=== PATIENT | male | born 1995 | race Caucasian/White ===

== ENCOUNTER 2021-04-29 22:36 | Emergency (ER) | payer SELFPAY ==
[~2021-04-29] VITALS: Ht 170.2 cm; Wt 51.8 kg
[2021-04-30] MEDS ORDERED: LORazepam 0.5 MG TABLET PO ONE (01:15)
--- NOTE | 2021-04-30 01:16 | PHYS DOC ---
Past Medical History Past Medical History: Anxiety, Asthma, Bipolar, Depression, GERD, Other Additional Past Medical Histor: panic attacks Past Surgical History: No Surgical History Smoking Status: Current Every Day Smoker Alcohol Use: None Drug Use: Marijuana General Adult EDM: Chief Complaint: ABDOMINAL PAIN HPI: HPI: Mr. Sharpe is a 25 yo male with extensive psychiatric history, IBS, GERD and stress ulcers who presents for LLQ quadrant pain. Patient states these symptoms are chronic in nature (10-12 years) and he decided to address them because they became overbearing. He states the abdominal pain usually starts in LLQ quadrant and becomes generalized. He states that the abdominal tenderness starts in the morning and is exacerbated by daily stressors. Recently, he is faced with a wide variety of stressors; family; relationships and financial; all of which induce his anxiety symptoms and initiate his abdominal pain. In addition, he has a history of IBS. constipation type not managed by medications which he feels are contributing to his abdominal pain. In addition to abdominal pain, patient has endorsed black stools and weight loss (7lbs in 5 months). Review of Systems: Review of Systems: Macro review constitutional: Denies fever, endorses chills Eyes: Denies redness or eye pain HENT: Denies nasal congestion or sore throat Respiratory: Denies cough, endorses shortness of breath during anxiety attacks Cardiovascular: Denies chest pain or palpitations GI: Endorses abdominal pain, constipation : Denies dysuria or hematuria Musculoskeletal: Denies back pain or joint pain Integument: Denies rash or skin lesions Neurologic: Denies headache, focal weakness or sensory changes Complete systems were reviewed and found to be within normal limits, except as documented in this note. Heart Score: C/O Chest Pain: N/A Allergies: Allergies: Allergies Coded Allergies Type Severity Reaction Last Updated Verified No Known Drug Allergies 04/25/13 No Physical Exam: PE: Constitutional: Well developed, malnourished, mild acute distress, non-toxic appearance HENT: Normocephalic, atraumatic Eyes: PERRL, EOMI, conjunctiva normal, no discharge Neck: Normal range of motion, no tenderness, supple Lungs & Thorax: No respiratory distress, equal chest rise and fall, clear to auscultate bilaterally Abdomen: Bowel sounds present X4, LLQ tenderness upon light palpation Skin: Warm, dry, no erythema, no rash Back: No tenderness, no CVA tenderness Extremities: No tenderness, ROM intact, no edema Neurologic: Alert and oriented X 3, normal motor function, normal sensory function, no focal deficits noted Psychologic: Affect normal, judgment normal Current Patient Data: Vital Signs: Vital Signs Date Time Temp Pulse Resp B/P (MAP) Pulse Ox O2 Delivery O2 Flow Rate FiO2 04/30/21 00:19 58 20 130/90 (103) 98 Room Air 04/29/21 23:40 98.3 98.3 EKG: EKG: [] Radiology/Procedures: Radiology/Procedures: [] Course & Med Decision Making: Course & Med Decision Making Mr. Sharpe is a 25 yo male with extensive psychiatric history, IBS, GERD and stress ulcers who presents for LLQ quadrant abdominal pain. Patient's symptoms are chronic in nature and upon further discussion patient agrees that his current symptoms are exacerbated by his anxiety and that any new imaging is not necessary. Consequently, patient was consulted on medication management due to difficulty taking his sucralfate which could be contributing to some of his symptoms. In addition, patient was consulted on the side effects of anxiety and was recommended some free clinics in the area to follow up. Angelia Disclaimer: Angelia Disclaimer: This electronic medical record was generated, in whole or in part, using a voice recognition dictation system. Departure Departure Impression: Primary Impression: Epigastric pain Additional Impression: Anxiety Disposition: 01 HOME / SELF CARE / HOMELESS Condition: STABLE Referrals: NO PCP (PCP) RENE CORTES MD Patient Instructions: Abdominal Pain (Nonspecific), Anxiety and Panic Attacks, [id number] Additional Instructions: Please call [facility] at to seek help for your mental health and/or drug/alcohol abuse. Scripts Ondansetron (ONDANSETRON ODT) 4 Mg Tab.rapdis 1 TAB PO PRN Q6-8HRS PRN for NAUSEA, #16 TAB Prov: AMIRA DEWEY DO 04/30/21 AMIRA DEWEY DO Apr 30, 2021 01:16
[2021-04-30] MEDS ORDERED: ONDA4TAB12 PO (01:20)
[2021-04-30 01:41] VITALS: BP 117/88
== END 2021-04-30 02:00 | disposition home or self-care (01) ==
LOC: ER 22:36
DX: K59.00 Constipation, unspecified (principal); K58.9 Irritable bowel syndrome, unspecified; J45.909 Unspecified asthma, uncomplicated; F31.9 Bipolar disorder, unspecified; K21.9 Gastro-esophageal reflux disease without esophagitis; F17.200 Nicotine dependence, unspecified, uncomplicated
CPT/HCPCS: 99285-25

== ENCOUNTER 2021-07-05 22:16 | Emergency (ER) | payer SELFPAY ==
[~2021-07-05] VITALS: Ht 175.3 cm; Wt 54.4 kg
[~2021-07-05 22:16] MED LIST: ONDA4TAB12 PO
--- NOTE | 2021-07-05 22:27 | PHYS DOC ---
Past Medical History Past Medical History: Anxiety, Asthma, Bipolar, Depression, GERD, Other Additional Past Medical Histor: panic attacks Past Surgical History: No Surgical History Smoking Status: Current Every Day Smoker Alcohol Use: None Drug Use: Marijuana General Adult HPI: HPI: Patient is a 25 year old male who reports having intermittent palpitations for the last several days. He has previously experienced similar symptoms. It has been several years since he saw cardiology. It sounds like he may have had a Holter monitor at one point in time. He reports only mild shortness of breath and chest discomfort with palpitations only. Symptoms of palpitations, pain and dyspnea only last a few seconds at a time. He denies dizziness, diaphoresis, syncope, abdominal pain, nausea, vomiting. He does admit to having some significant anxiety, which is chronic and unchanged. He takes alprazolam. He does not take any other medications for his anxiety. He denies any recent or new stressors. Denies SI or HI symptoms. He denies fevers or chills. Denies cough. Denies abdominal pain. No lower extremity pain or swelling. No recent travel, surgery, hospitalization. He does not drink caffeine, does not use illicit substances. Review of Systems: Review of Systems: Constitutional: Denies fever or chills. [] HENT: Denies nasal congestion or sore throat. [] Respiratory: Denies cough or hemoptysis. Brief episodes of dyspnea with palpitations only. Cardiovascular: Palpitations, chest pain with palpitations only. Denies edema. Denies syncope. GI: Denies abdominal pain, nausea, vomiting, or diarrhea. : Denies urinary symptoms. Musculoskeletal: Denies back pain or joint pain. [] Integument: Denies rash. [] Neurologic: Denies headache, focal weakness or sensory changes. Denies dizziness or syncope. Psychiatric: Chronic anxiety. Denies SI or HI symptoms. Heart Score: C/O Chest Pain: Yes HEART Score for Chest Pain: HEART Score for Chest Pain Response (Comments) Value History Slighlty/Non-Suspicious 0 ECG Normal 0 Age < 45 0 Risk Factors No Risk Factors 0 Troponin < Normal Limit 0 Total 0 Risk Factors: Risk Factors: DM, Current or recent (<one month) smoker, HTN, HLP, family history of CAD, obesity. Risk Scores: Score 0 - 3: 2.5% MACE over next 6 weeks - Discharge Home Score 4 - 6: 20.3% MACE over next 6 weeks - Admit for Clinical Observation Score 7 - 10: 72.7% MACE over next 6 weeks - Early Invasive Strategies Allergies: Allergies: Allergies Coded Allergies Type Severity Reaction Last Updated Verified No Known Drug Allergies 04/25/13 No Physical Exam: PE: Constitutional: Well developed, well nourished, no acute distress, non-toxic appearance. [] HENT: Normocephalic, atraumatic, oropharynx is patent and clear, mucous membranes are moist Eyes: Conjunctiva normal, no discharge. [] Neck: Normal range of motion, no tenderness, supple, no stridor. Trachea is midline. No JVD. Cardiovascular:Heart rate regular rhythm, +2 radial and +2 dorsalis pedis pulses bilaterally. No edema, cap refill brisk, no sinus Lungs & Thorax: Bilateral breath sounds clear to auscultation, no rales, rhonchi or wheezes Abdomen: Abdomen is soft, nondistended, nontender to palpation peer Skin: Warm, dry, no erythema, no rash. [] Back: No tenderness, no CVA tenderness. [] Extremities: No tenderness, no cyanosis, no clubbing, ROM intact, no edema. No calf tenderness Neurologic: Alert and oriented X 3, normal motor function, normal sensory function, no focal deficits noted. [] Psychologic: He is anxious but cooperative and pleasant. EKG: EKG: EKG is interpreted at 2239 Rhythm is sinus Rate is 79 bpm [place] is right No STEMI No acute ischemia Radiology/Procedures: Radiology/Procedures: IMAGING REPORT Signed PATIENT: DANG OZUNA ACCOUNT: [id number] : 1995 LOCATION: ER AGE: 25 SEX: M EXAM STATUS: PRE ER ORD. PHYSICIAN: ANA WINTERS DO REASON: palpitations, chest pain PROCEDURE: PORTABLE CHEST 1V Exam: Chest one view INDICATION: Palpitations, chest pain TECHNIQUE: Frontal view of the chest Comparisons: 02/22/2015 FINDINGS: The cardiomediastinal silhouette and pulmonary vessels are within normal limits. The lung and pleural spaces are clear. IMPRESSION: No acute cardiopulmonary process. Electronically signed by: Malika Daniels MD (07/05/2021 11:10 PM) [facility] DICTATED and SIGNED BY: MALIKA DANIELS MD DATE: 07/05/21 5231 Course & Med Decision Making: Course & Med Decision Making Pertinent Labs and Imaging studies reviewed. (See chart for details) I discussed the findings, differential diagnosis and plan of care with him. Emergency department work-up is unremarkable for any acute life-threatening pathology. EKG is unremarkable. Telemetry monitoring here demonstrates no acute abnormalities. Laboratory exams are unremarkable. I told him that he should follow-up with not only his PCP but also with outpatient cardiology services. He may require repeat Holter monitoring. Regarding his chronic anxiety issues, I explained that alprazolam is not an appropriate medication for treatment of generalized anxiety or chronic anxiety issues, he should talk to his PCP about maintenance medications. He has been referred to [facility], but he has not followed up with them yet. I told him that I encouraged him to do so. No current indication for admission at this time. Return precautions are given. Dragon Disclaimer: Dragon Disclaimer: This electronic medical record was generated, in whole or in part, using a voice recognition dictation system. Departure Departure Impression: Primary Impression: Palpitations Additional Impression: Anxiety Disposition: 01 HOME / SELF CARE / HOMELESS Condition: STABLE Referrals: NO PCP (PCP) MAYRA LEOS MD, DONALD J MD PASNOORI, VENKAT R MD Patient Instructions: Anxiety and Panic Attacks, Palpitations Additional Instructions: Please follow-up with your primary care physician as well as outpatient cardiology. Make sure you stay hydrated, avoid use of caffeine, drink plenty of water. Return to the ER for more severe symptoms, uncontrolled vomiting, severe abdominal pain, severe chest pain, severe shortness of breath, passing out, focal weakness or other concerns. Regarding your chronic anxiety issues, I do recommend you see [facility], also talk to your primary care doctor about being placed on a maintenance medication to help the underlying cause of your anxiety issues. ANA WINTERS DO Jul 05, 2021 22:27
[2021-07-05 22:55] LABS: BASO # 0.1 x10^3/uL (0.0-0.2); BASO % 1 % (0-3); EOS # 0.1 x10^3/uL (0.0-0.7); EOS % 1 % (0-3); HEMATOCRIT 41.9 % (39.0-53.0); HEMOGLOBIN 14.6 g/dL (13.0-17.5); LYMPH % 29 % (24-48); MEAN CORPUSCULAR HEMOGLOBIN 31 pg (25-35); MEAN CORPUSCULAR HGB CONC 35 g/dL (31-37); MEAN CORPUSCULAR VOLUME 89 fL (79-100); MONO # 0.7 x10^3/uL (0.0-1.1); MONO % 7 % (0-9); NEUT # 6.6 x10^3/uL (1.8-7.7); NEUT % 63 % (31-73); PLATELET COUNT 263 x10^3/uL (140-400); RED BLOOD COUNT 4.69 x10^6/uL (4.30-5.70); RED CELL DISTRIBUTION WIDTH 12.6 % (11.5-14.5); WHITE BLOOD COUNT 10.4 x10^3/uL (4.0-11.0)
[2021-07-05] MEDS ORDERED: IV NORMAL SALINE 1000ML BAG 1,000 ML IV ONE (23:00)
[2021-07-05 23:08] LABS: CALCIUM 9.2 mg/dL (8.5-10.1); GFR 90.3; MAGNESIUM 1.9 mg/dL (1.8-2.4); POTASSIUM 3.3 mmol/L (3.5-5.1)
--- NOTE | 2021-07-05 23:12 | RAD ---
Exam: Chest one view INDICATION: Palpitations, chest pain TECHNIQUE: Frontal view of the chest Comparisons: 02/22/2015 FINDINGS: The cardiomediastinal silhouette and pulmonary vessels are within normal limits. The lung and pleural spaces are clear. IMPRESSION: No acute cardiopulmonary process. Electronically signed by: Malika Vaughn MD (07/05/2021 11:10 PM) ANGÉLICA
[2021-07-06 00:34] VITALS: BP 106/64
== END 2021-07-06 00:40 | disposition home or self-care (01) ==
LOC: ER 22:16
DX: R00.2 Palpitations (principal); F41.9 Anxiety disorder, unspecified; R06.02 Shortness of breath; R07.89 Other chest pain; J45.909 Unspecified asthma, uncomplicated; F31.9 Bipolar disorder, unspecified; K21.9 Gastro-esophageal reflux disease without esophagitis; F17.200 Nicotine dependence, unspecified, uncomplicated
CPT/HCPCS: 36415; 71045; 80048; 83735; 84443; 84484; 85025; 96360; 99285; J7030